=== PATIENT | male | born 1945 | race Caucasian/White ===

== ENCOUNTER 2025-08-04 14:13 | Emergency (ER) | payer MEDICARE, SELFPAY ==
--- OUTSIDE RECORDS SUMMARY | 2023-06-01 02:30 | XMS_ITS | Continuity of Care Document ---
Author Organization [facility] Address [address] [place] [address] Phone Care Team Providers Care Collection Development Librarian Name Role Phone Samantha BANGURA, Keon Unavailable Unavailable Allergies, Adverse Reactions, Alerts Substance Reaction Status Criticality No Known Allergies Active No Inform ation Medications Medication Instructions Dosage Effective Dates (start - stop) Status Comments ketorolac 0.5 % eye drops instill 1 drop by ophthalmic route 4 times every day into affected eye(s) starting 3 days before surgery and continue for 1 month after surgery - Active dorzolamide 22.3 mg-timolol 6.8 mg/mL eye drops instill 1 drop by ophthalmic route 2 times every day into affected eye(s) 1.00 drop - Active losartan 25 mg tablet - Active Combigan 0.2 %-0.5 % eye drops - Active Lexapro 5 mg tablet - Active simvastatin 10 mg tablet - Active Procedures Procedure Date Laser Trabeculoplasty Visual Field Examination(s) Gonioscopy Echo Exam Of Eye Fundus Photo W/Interp And Report 2022 Eye Exam, New Patient Advance Directives Directive Yes / No Effective Date File Name No Information Encounters Encounter Description Practice Location Reason(s) For Visit Diagnoses Date Provider Providers Copied on Encounter [facility], [address], [place], [address], [place] tel:[phone] [facility] (chief complaint) Primary open-angle glaucoma, right eye, moderate stage 3 Samantha Herbert. [address], [address], [place], [place], [address], [place]. tel:[phone] Referring Provider: Brandt Trimble, [address] [facility], [place], [address]. tel:[phone] [facility], [address], [place], [address], [place] tel:[phone] [facility] glaucoma (chief complaint) Primary open-angle glaucoma, right eye, moderate stagePrimary open-angle glaucoma, left eye, mild stageChronic follicular conjunctiviti s, bilateral Sep-0 3 Samantha Herbert. [address] [facility] [address], [address], [place], [place], [address], [place]. tel:[phone] Family History Family Member Type Diagnosis Age At Onset Problem Family history of Glaucoma Payers Payer name Insurance type Covered democrat ID Authoriza jaqueline(s) Medicare [facility] [id number] [facility] Medicare Supplement [place] [id number] Social History Type Description Quantity Date Captured Comments Alcohol Use Details Unknown Caffeine Use Details Unknown Tobacco Use Status No Information Smoking Status No Information Sex Male Chief Complaint And Reason For Visit From encounter dated '06/01/2023 08:30'. Laser (chief complaint). Description: The 77 year old client presents for SLT OD to improve IOP control, reduce IOP fluctuations, and possibly reduce eye drop burden. Reason For Referral Reason For Referral No Information Plan Of Treatment Date Type Action Status Future Order: Radiology Order Ze iss Visual Langford Analyzer STH ([id number]), Sent on: Sent History Of Present Illness Encounter Date Complaint History Of Prese nt Illness Laser The 77 year old client presents for SLT OD to improve IOP control, reduce IOP fluctuations, and possibly reduce eye drop burden. glaucoma s/p PCIOL OU (20 04) with Dr. MunguiaThe 77 year old was referred by Dr. Chavarria/Naya for glaucoma evaluation. Patient reports vision is stable, uses reading glasses only for computer. Has worked with Dr. Person in the past for his glaucoma care. gtts: Combigan BID OU -- LD: this morning Compliant: 90% (+)FHx of glaucoma: father(-)Blood thinners(-)Asthma(-)Heart Conditions Functional Status Date Functional Assessmen t No Information Instructions Date Instruction Additional Infor alize Impression/Plan Related to Prima ry open-angle glaucoma, right eye, moderate stage Impression/Plan Related to Prima ry open-angle glaucoma, right eye, moderate stage Impression/Plan Related to Prima ry open-angle glaucoma, left eye, mild stage Impression/Plan Related to Chron ic follicular conjunctivitis, bilateral Assessments Type Assessment Date assessment Primary open-angle glaucoma, rig ht eye, moderate stage impression h/o SLT OU with Dr. Cordero 65 moderate thinning ODHVF superior nasal step ODIOP 20 high ODCCT pending OD Patient Care Teams Name Effective Dates (start - stop) Status Members No Information
--- OUTSIDE RECORDS SUMMARY | 2023-06-01 02:30 | XMS_ITS | Continuity of Care Document ---
Author Organization [facility] Address [address] [place] [address] Phone Care Team Providers Care Tile Presser Name Role Phone Samantha ABNGURA, Keon Unavailable Unavailable Allergies, Adverse Reactions, Alerts [...] Diagnoses Date Provider Providers Copied on Encounter [facility], [address], [place], [address], [place] tel:[phone] [facility] (chief complaint) Primary open-angle glaucoma, right eye, moderate stage 3 Samantha Herbert. [address], [address], [place], [place], [address], [place]. tel:[phone] Referring Provider: Brandt Trimble, [address] [facility], [place], [address]. tel:[phone] [facility], [address], [place], [address], [place] tel:[phone] [facility] glaucoma (chief complaint) Primary open-angle glaucoma, right eye, moderate stagePrimary open-angle glaucoma, left eye, mild stageChronic follicular conjunctiviti s, bilateral Sep-0 3 Samantha Herbert. [address] [facility], [address], [place], [place], [id number], [place]. tel:[phone] Family History Family Member Type Diagnosis Age At Onset Problem Family history of Glaucoma Payers Payer name Insurance type Covered alliance party ID Authoriza jaqueline(s) Medicare [facility] [id number] [facility] Medicare Supplement [place] [id number] Social History Type Description Quantity Date Captured [...] Order Ze iss Visual Langford Analyzer STH ([id number]), Sent on: Sent History Of Present Illness [...] right eye, moderate stage Impression/Plan Related to Chron ic follicular conjunctivitis, bilateral Impression/Plan Related to Prima ry open-angle glaucoma, left eye, mild stage Impression/Plan Related to Prima ry open-angle glaucoma, right eye, moderate stage Assessments Type Assessment Date assessment Primary open-angle glaucoma, rig ht eye, moderate stage impression h/o SLT OU with Dr. Cordero 65 moderate thinning ODHVF superior nasal step ODIOP 20 high ODCCT pending OD Patient Care Teams Name Effective Dates (start - stop) Status Members No Information
--- NOTE | ~2025-08-04 | CT_ITS ---
EXAMINATION: CT abdomen pelvis w con DATE: 08/04/2025 17:48 INDICATION: 80 year-old with left lower quadrant pain and swelling. TECHNIQUE: Computed tomography (CT) of the abdomen and pelvis was performed 100s cc intravenous contrast. Automated exposure control and iterative reconstruction technique were employed. The dose-length product was 696.08 mGy-cm. COMPARISON: None. FINDINGS: Severe multivessel coronary artery calcification in the lower chest. Significant calcific changes of aortic valve cusps indicating some degree of aortic stenosis. No focal lesions of the liver and spleen. Gallbladder, pancreas and kidneys do not show acute findings. Severe calcific atherosclerotic changes of the proximal superior mesenteric artery. No evidence of small bowel obstruction. Fecal impaction in rectum. Large inguinal hernia on the left side containing a loop of sigmoid colon. No evidence of bowel obstruction. No fluid collections in the pelvic cavity. IMPRESSION: 1. Left inguinal hernia containing loop of sigmoid colon. No evidence of bowel obstruction. 2. Severe calcific changes of proximal superior mesenteric artery. Significant calcific changes of proximal right renal artery. 3. Significant multivessel coronary artery calcification. Calcific changes of aortic valve indicating some degree of aortic stenosis. Please correlate with echocardiographic findings. 4. Degenerative changes with postsurgical changes at L4-5 level with first- degree spondylolisthesis. Reviewed, dictated and finalized at location T. ING SPECIALIST IMPRESSION: 1. Left inguinal hernia containing loop of sigmoid colon. No evidence of bowel obstruction. 2. Severe calcific changes of proximal superior mesenteric artery. Significant calcific changes of proximal right renal artery. 3. Significant multivessel coronary artery calcification. Calcific changes of a ortic valve indicating some degree of aortic stenosis. Please correlate with ec hocardiographic findings. 4. Degenerative changes with postsurgical changes at L4-5 level with first-degr ee spondylolisthesis.
[2025-08-04 14:30] VITALS: BP 145/53; PULSE 94; RESP 18; TEMP 36.6; O2SAT 100
[2025-08-04 16:27] LABS: Hematocrit 31.5 % (42.0-52.0); Hemoglobin 10.2 g/dL (14.0-18.0); Immature Granulocyte Percent A 0.3 % (0-0.5); Lymphocytes Absolute Auto 2.29 K/mm3 (0.9-3.2); Mean Corpuscular HGB Conc 32.4 g/dl (32-36); Mean Corpuscular Hemoglobin 27.3 pg (26-34); Mean Corpuscular Volume 84.2 fl (80-100); Nucleated Red Blood Cells Absolute Auto 0.000 K/mm3 (0.0-0.012); Nucleated Red Blood Cells Perc 0.0 % (0.0-0.2); Platelet Count Result 638 k/mm3 (150-375); Red Blood Count 3.74 M/mm3 (4.6-6.20); White Blood Count 12.4 K/mm3 (4.5-10.0)
[2025-08-04 16:36] LABS: Alanine Aminotransferase 19 U/L (6-50); Albumin Level 4.6 g/dL (3.5-5.1); Alkaline Phosphatase 85 U/L (38-126); Anion Gap 8 mmol/L (4-12); Aspartate Amino Transferase 26 U/L (17-59); Bilirubin,Total 0.4 mg/dL (0.2-1.3); Blood Urea Nitrogen 22 mg/dL (9-20); Calcium 9.1 mg/dL (8.4-10.2); Carbon Dioxide 27 mmol/L (22-30); Chloride 104 mmol/L (98-107); Estimated CRCL calculation 46 ml/min; Estimated Glomerular Filt Rate > 60; Glucose 113 mg/dL (65-110); Lipase 160 U/L (23-300); Potassium 4.1 mmol/L (3.4-5.0); Sodium 139 mmol/L (137-145); Total Protein 8.2 g/dL (6.3-8.2)
--- NOTE | 2025-08-04 17:14 | ED_ITS ---
HPI - Abdominal Pain General Chief Complaint: Abdominal Pain Stated Complaint: I think I have a hernia Time Seen by Provider: 08/04/25 16:56 History of Present Illness HPI narrative: Patient is a 80-year-old male who presents to the ER with concerns of a hernia. He reports he is from [place] and is here on a work trip. Patient reports 2 weeks ago he was ?violently ill with a stomach flu but his symptoms have subsided. He reports his doctor put him on ciprofloxacin and he is almost done with that prescription. Patient denies any urinary symptoms, recent fevers, or significant diarrhea. He reports he started experiencing left lower quadrant abdominal pain yesterday so he called his doctor today. His doctor advised him to come into ER for further evaluation. Patient reports in the last couple of months he has purposefully lost 30 lb. He endorses a history of back surgery, hypertension, and takes Lexapro. Patient reports the swelling goes down into his testicles. Related Data Allergies Allergy/AdvReac Type Severity Reaction Status Date / Time No Known Allergies Allergy Verified 08/04/25 15:39 Review of Systems 2 Review of Systems: All systems reviewed & are unremarkable except as noted in HPI and below Exam 2 Narrative: GENERAL: Well appearing, well-nourished, non-toxic, in no acute distress. HEAD: Normocephalic, atraumatic. NECK: Supple. No adenopathy, no masses. RESPIRATORY: Airway patent, respirations nonlabored. Clear to auscultation bilaterally, no rales, rhonchi, wheezing. CARDIOVASCULAR: Regular rate and rhythm without murmurs, rubs, or gallops. Peripheral pulses 2+ and equal bilaterally. ABDOMINAL: Soft, left lower quadrant tenderness, nondistended, no hepatosplenomegaly. Normoactive BS. Swelling to left lower quadrant but no hard masses palpable with minimal swelling to testicle. Negative Cremasteric sign. MUSCULOSKELETAL: Moves all extremities. Strength/ROM intact without gross deformities. SKIN: Warm, dry, normal color. No rashes. NEURO: A&O X3. Speech clear. Cranial nerves II-XII intact. No ataxic movements. PSYCHIATRIC: Appropriate mood and affect. Normal interaction. Course Vital Signs Vital signs: Vital Signs Temperature 36.6 C 08/04/25 14:30 Pulse Rate 94 08/04/25 14:30 Respiratory Rate 18 08/04/25 14:30 Blood Pressure 145/53 H 08/04/25 14:30 Pulse Oximetry 100 08/04/25 14:30 Temperature 36.6 C 08/04/25 14:30 Pulse Rate 87 08/04/25 18:21 Respiratory Rate 18 08/04/25 18:21 Blood Pressure 146/88 H 08/04/25 18:21 Pulse Oximetry 100 08/04/25 18:21 MDM - Abdominal Pain MDM Narrative Medical decision making narrative: Patient is a 80-year-old male who presents to the ER with concerns of a hernia. He reports he is from [place] and is here on a work trip. Patient reports 2 weeks ago he was ?violently ill with a stomach flu but his symptoms have subsided. He reports his doctor put him on ciprofloxacin and he is almost done with that prescription. Patient denies any urinary symptoms, recent fevers, or significant diarrhea. He reports he started experiencing left lower quadrant abdominal pain yesterday so he called his doctor today. His doctor advised him to come into ER for further evaluation. Patient reports in the last couple of months he has purposefully lost 30 lb. He endorses a history of back surgery, hypertension, and takes Lexapro. Patient reports the swelling goes down into his testicles. Labs Ordered: CBC, CMP, lipase, UA Imaging Ordered: CT abdomen pelvis Medications Ordered: None necessary Results: Pt's CT scan indicates Severe multivessel coronary artery calcification in the lower chest. Significant calcific changes of aortic valve cusps indicating some degree of aortic stenosis. No focal lesions of the liver and spleen. Gallbladder, pancreas and kidneys do not show acute findings. Severe calcific atherosclerotic changes of the proximal superior mesenteric artery. No evidence of small bowel obstruction. Fecal impaction in rectum. Large inguinal hernia on the left side containing a loop of sigmoid colon. No evidence of bowel obstruction. No fluid collections in the pelvic cavity. Diagnosis: L inguinal hernia, arthrosclerosis Consults: 1829-Pt's primary care provider Patient Education/Shared MDM: Results of lab work and imaging shared with patient. He requests FLIGHT CONTROL MANAGER see with his primary care provider to share results with her. Results of lab work and imaging shared with his primary care provider. She and patient will follow-up tomorrow or the next day, as soon as he gets back into [place]. Pt's PCP advises pt has a hazardous substances engineer and business intelligence engineer established, and she will have him follow up with a general surgeon. Patient reports he is unable to urinate at this time. He is requesting to be discharged without a urinalysis, as he reports he will be able to urinate once he gets back to his hotel room. Patient strongly advised to maintain hydration status upon discharge. He will not be discharged home with any new prescriptions. Strict return precautions provided. Patient verbalized understanding and is in agreement with plan. Vital signs stable at time of discharge. All questions answered. Differential Diagnosis Differential diagnosis: Likely abdominal pain, acute appendicitis, calculus of kidney, constipation, small bowel obstruction and other (inguinal hernia) Lab Data Attestation: I reviewed the patient's lab results. 08/04/25 16:21 08/04/25 16:21 Labs: Lab Results 08/04/25 Range/Units 16:21 WBC 12.4 H (4.5-10.0) K/mm3 RBC 3.74 L (4.6-6.20) M/mm3 Hgb 10.2 L (14.0-18.0) g/dL Hct 31.5 L (42.0-52.0) % MCV 84.2 (80-100) fl MCH 27.3 (26-34) pg MCHC 32.4 (32-36) g/dl RDW 15.4 H (11.5-14.5) % Plt Count 638 H (150-375) k/mm3 MPV 9.1 (7.4-10.4) fl Immature Gran % (Auto) 0.3 (0-0.5) % Neut % (Auto) 66.1 (45.5-73.1) % Lymph % (Auto) 18.5 (18.3-44.2) % [place] % (Auto) 11.7 H (2.6-8.5) % Eos % (Auto) 2.8 (0-4.4) % Baso % (Auto) 0.6 (0.2-1.2) % Lymph # (Auto) 2.29 (0.9-3.2) K/mm3 [place] # (Auto) 1.4 H (0.1-0.6) K/mm3 Eos # (Auto) 0.3 (0-0.3) K/mm3 Baso # (Auto) 0.1 (0.0-0.1) K/mm3 Abs Immat Gran (auto) 0.04 H (0.00-0.031) K/mm3 Absolute Neuts (auto) 8.2 H (1.3-6.7) K/mm3 Absolute Nucleated RBC 0.000 (0.0-0.012) K/mm3 Nucleated RBC % 0.0 (0.0-0.2) % Sodium 139 (137-145) mmol/L Potassium 4.1 (3.4-5.0) mmol/L Chloride 104 (98-107) mmol/L Carbon Dioxide 27 (22-30) mmol/L Anion Gap 8 (4-12) mmol/L BUN 22 H (9-20) mg/dL Creatinine 1.12 (0.7-1.3) mg/dL Estim Creat Clear Calc 46 ml/min Estimated GFR > 60 (59 - ) Glucose 113 H (65-110) mg/dL Calcium 9.1 (8.4-10.2) mg/dL Total Bilirubin 0.4 (0.2-1.3) mg/dL AST 26 (17-59) U/L ALT 19 (6-50) U/L Alkaline Phosphatase 85 (38-126) U/L Total Protein 8.2 (6.3-8.2) g/dL Albumin 4.6 (3.5-5.1) g/dL Lipase 160 (23-300) U/L Imaging Data Attestation: I personally reviewed and interpreted this imaging study as follows: Radiologist's impression: ITS Impressions Abdomen/Pelvis CT 08/04/25 17:49 IMPRESSION: 1. Left inguinal hernia containing loop of sigmoid colon. No evidence of bowel obstruction. 2. Severe calcific changes of proximal superior mesenteric artery. Significant calcific changes of proximal right renal artery. 3. Significant multivessel coronary artery calcification. Calcific changes of aortic valve indicating some degree of aortic stenosis. Please correlate with echocardiographic findings. 4. Degenerative changes with postsurgical changes at L4-5 level with first- degree spondylolisthesis. Discharge Plan Discharge Clinical Impression: Atherosclerosis of arteries, Inguinal hernia Patient Disposition: Home Condition: Stable Instructions: Antibiotic Form, Low Fat Diet (ED), Inguinal Hernia (ED) Additional Instructions: Please return to the ER with any worsening symptoms. Follow-up with primary care provider as soon as possible, as discussed. Take all medications as prescribed, including regularly scheduled medications. If you are unable to urinate, please return to the ER. Remember to drink lots of water. Patient Language: Portuguese Follow-up/Referrals: PHYSICIAN,SPIRAL SPRING WINDER [Primary Care Provider, Internal Medicine] Time of Disposition: 19:16
[2025-08-04 18:21] VITALS: BP 146/88; PULSE 87; RESP 18; O2SAT 100
--- OUTSIDE RECORDS SUMMARY | 2025-08-05 04:46 | XMS_ITS ---
Author Organization Unknown ENCOUNTERS Encounter Performer Location Date Diagnosis Diagnosis Status Pre Admit [place] [id number] [place] [address] [id number] Emergency [facility] [address] [place] [address] [id number] JOELLE *Note: Encounters from your own facility or health system may be excluded. Allergies, Adverse Reactions, Alerts Allergen Type Severity Identification Date Medications Name Date Quantity Days Supplied GPI Number
--- OUTSIDE RECORDS SUMMARY | 2025-08-05 04:46 | XMS_ITS | Encounter Summary ---
Author Organization [facility] Address [address] [place] [address] Care Team Providers Care Rivet Bucker Name Role Phone Maureen Barahona MD Primary Care Provider [phone] Reason for Referral * Surgical (Routine) - Authorized Specialty Diagnoses / Procedures Referred By Contac t Referred To Contact Surgery / General Surgery Diagnoses Non-recurrent unilateral inguinal hernia without obstruction [place] [address] [facility] [address] [place] [address] Phone: tel: fax: Juanis Reese MD [address] [place] [address] Phone: tel: fax: Referral ID Status Reason Start Date Expiration Date Visits Requested Visits Authorized [id number] Authorized Specialty Services Required 5 1 1 Reason for Visit * Reason Onset Date Comments Advice Only 08/04/2025 Pt called after hours with possible inginal hernia, he is out of town right now till tomorrow night. Encounter Details Date Type Department Care Team (Late st Contact Info) Description 08/04/2025 Telephone [facility] [address] [place] [address] [place] [address] [place] [address] Advice Only (Pt called after hours with possible inginal hernia, he is out of town right now till tomorrow night.) Social History Tobacco Use Types Packs/Day Years Used Date Smoking Tobacco: Never Passive Smoke Exposure: Never Smokeless Tobacco: Never Alcohol Use Standard Drinks/Week Comments Yes 10 (1 standard drink = 0.6 oz pu re alcohol) Overall Financial Resource Strain (CARDIA) Answe r Date Recorded How hard is it for you to pa y for the very basics like food, housing, medical care, and heating? Not hard at all 03/06/2023 PHQ-2 Answer Date Recorded PHQ-2 Score 0 12/01/2024 [facility] Occupat ional [facility] - Occupational Stress Questionnaire Answer Date Recorded Do you feel stress - tense, restless, nervous, or anxious, or unable to sleep at night because your mind is troubled all the time - these days? Not at all 03/06/2023 Hunger Vital Sign Answer Date Recorded Within the past 12 months, y ou worried that your food would run out before you got the money to buy more. Never true 03/06/20 23 Within the past 12 months, t he food you bought just didn't last and you didn't have money to get more. Never true 03/06/2023 PRAPARE - Transportation Answer Date Re corded In the past 12 months, has l ack of transportation kept you from medical appointments or from getting medications? No 02/16 In the past 12 months, has l ack of transportation kept you from meetings, work, or from getting things needed for daily living? No 03/06/2023 Housing Stability Vital Sign Answer Neto e Recorded In the last 12 months, was t here a time when you were not able to pay the mortgage or rent on time? No 03/06/2023 In the last 12 months, how many places have you lived? 1 03/06/2023 In the last 12 months, was t here a time when you did not have a steady place to sleep or slept in a assisted (including now)? No 03/06/2023 Sex and Gender Information Value Date Recorded Sex Assigned at Not on file Legal Sex Male 3:11 AM EDT Gender Identity Not on file Sexual Orientation Not on file documented as of this encounter Miscellaneous Notes * Telephone Encounter - Maureen Barahona MD - 08/04/2025 9:11 AM EST August 04, 2025 at 7:44 AM SMS: Bakari Fischer ( ) Good morning Dr Barahona. It's Robby Fischer. I could use your help once more this week!! Ugh... we spoke on the phone yesterday about the swelling and pain in my left groin area. Know what??? I really think it's a hernia. Classic symptoms. And it's pretty bad!! Can you arrange a priority appointment with a surgeon, soonest? I see there is a [place] group with a Dr Knight in [place]. But please recommend your first choice!! I am back tomorrow night. How many times can I say...Thank You'. Robby. (I am textable at any time) I called pt no answer, he is in [place] at a meeting. I sent him a message rec if pain worse to go to local ER there to be assessed for possible incarcerated hernia. I will also place urgent referral to local group down here. documented in this encounter Plan of Treatment Upcoming Encounters Date Type Department Care Team (Late st Contact Info) Description 08/06/2025 3:20 PM EST Office Visit [place] [address] [address] [place] [address] [place] [address] [facility] [address] [place] [address] Lakeshia Gregory NP 08/20/2025 1:30 PM EST Office Visit [facility] [address] [facility] [address] [place] [address] [place] [address] [address] Scheduled Referrals Name Type Priority Associated Diagnoses Orde r Schedule Ambulatory referral to General Surgery Outpatient Referral Routine Non-recurrent unilateral inguinal hernia without obstruction or gangrene Ordered: 08/04/2025 documented as of this encounter Visit Diagnoses Diagnosis Non-recurrent unilateral inguinal hernia without obstruction or gangrene- Primary documented in this encounter Care Teams Rivet Bucker Relationship Specialty Start [place] [address] [address] PCP - General Internal Medicine 12/01/24 documented as of this encounter
--- OUTSIDE RECORDS SUMMARY | 2025-08-05 04:46 | XMS_ITS | Encounter Summary ---
Author Organization [facility] Address [address] [place] [address] Care Team Providers Care Sail Finisher Hand Name Role Phone Maureen Barahona MD Primary Care Provider Encounter Details Date Type Department Care Team (Latest Contact Info) Description 07/29/2025 Results Follow-Up [facility] [address] [facility] [address] [place] [address] [place] [address] [facility] [address] [place] [address] CBC w/platelet and auto diff, Comprehensive metabolic panel, Vitamin D 25 hydroxy, Additional followed-up results: 4 Social History Tobacco Use Types Packs/Day Years [...] Answer Date Recorded PHQ-2 Score 0 12/01/2024 [facility] [place] of Occupat ional Health - Occupational Stress [...] place to sleep or slept in a detention (including now)? No 03/06/2023 Sex and Gender Information Value Date Recorded Sex Assigned at Not on file Legal Sex Male 3:11 AM EDT Gender Identity Not on file Sexual Orientation Not on file documented as of this encounter Plan of Treatment Upcoming Encounters Date Type Department Care Team (Late st Contact Info) Description 08/06/2025 3:20 PM EST Office Visit [address] [address] [place] [address] [place] [address] [facility] [address] [place] [address] Lakeshia Gregory NP 08/20/2025 1:30 PM EST Office Visit [facility] [address] [address] [place] [address] [place] [address] documented as of this encounter Visit Diagnoses Not on filedocumented in this encounter Care Teams Sail Finisher Hand Relationship Specialty Start [place] [address] [facility] [address] [place] [address] PCP - General Internal Medicine 12/01/24 documented as of this encounter
--- OUTSIDE RECORDS SUMMARY | 2025-08-05 04:46 | XMS_ITS | Clinical Summary ---
Author Organization [facility] Address [address] [place] [address] Care Team Providers Care Ediscovery Project Manager Name Role Phone Maureen Barahona MD Primary Care Provider [phone] Allergies Active Allergy Reactions Criticality Noted Date Comments Hizvweo-Fnf-Lgq Reductase Inhibitors Other (See Comments),Drowsiness 06/04/2025 Cramping, dizziness Medications brimonidine-ti moloL (COMBIGAN) 0.2-0.5 % ophthalmic solution 1 drop every 12 (twelve) hours. Active TURMERIC ORAL Take by mouth Daily. Active COQ10, UBIQUINOL, ORAL Take by mouth Daily. Active famotidine (PEPCID) 20 MG tablet Take by mouth Daily. Active docusate sodium (COLACE) 100 MG capsule Take 1 capsule (100 mg total) by mouth in the morning and 1 capsule (100 mg total) before bedtime. 20 capsule 3 Active prednisoLONE acetate (PRED FORTE) 1 % ophthalmic suspension Place 1 drop into the left eye in the morning. 5 Active traMADoL (ULTRAM) 50 mg tablet Take by mouth. 5 Active rosuvastatin (CRESTOR) 10 MG tablet Take 1 tablet by mouth in the morning. 90 tablet 1 5 Active azithromycin (ZITHROMAX Z-MAGALIE) 250 mg tablet Take two 250 mg tablets on the first day and one 250-mg tablet once daily for the next four days. 6 tablet 5 Active escitalopram oxalate (LEXAPRO) 10 MG tablet Take 1.5 tablets by mouth in the morning. 135 tablet 3 5 Active valACYclovir (VALTREX) 500 MG tablet Take 1 tablet by mouth 2 (two) times daily as needed. 60 tablet 3 5 Active losartan (COZAAR) 50 MG tablet Take 1 tablet by mouth in the morning. 90 tablet 3 5 Active traZODone (DESYREL) 50 MG tablet Take 1 tablet by mouth nightly. 90 tablet 1 5 025 Active tadalafiL (CIALIS) 10 MG tablet Take 1 tablet by mouth as needed for Erectile Dysfunction. 20 tablet 6 5 025 Discontinued Active Problems Problem Noted Date Diagnosed Date Elevated coronary artery calcium score GERD (gastroesophageal reflux disease) 5 Obese 01/13/2025 Other specified glaucoma 12/01/2024 Spondylolisthesis, lumbar region 11/27/2022 Overview (11/27/2022): Added automatically from request for surgery [id number] Lumbar radiculopathy 11/27/2022 Overview (11/27/2022): Added automatically from request for surgery [id number] Spinal stenosis of lumbar re gion with neurogenic claudication 11/27/2022 Overview (11/27/2022): Added automatically from request for surgery [id number] Degeneration of lumbar intervertebral disc 11/27 Overview (11/27/2022): Added automatically from request for surgery [id number] Chronic midline low back pain without sciatica 0 04/04/2021 Anemia 05/16/2020 Essential hypertension 11/29/2017 Mixed hyperlipidemia 11/29/2017 Depression 11/29/2017 Psychophysiological insomnia 11/29/2017 Restless leg syndrome 11/29/2017 Encounters Date Type Department Care Team Description 08/04/2025 Telephone [facility] CPM [address] [place] [address] Mayela Costa HEALTHCARE ASSOCIATE Advice Only 08/04/2025 Telephone [facility] [address] [address] Maureen Barahona MD Advice Only (Pt called after hours with possible inginal hernia, he is out of town right now till tomorrow night.) 08/03/2025 Telephone [facility] [address] [address] Maureen Barahona MD Results (Stool culture results/) 07/29/2025 Results Follow-Up [facility] [id number] [place] [address] Maureen Barahona MD CBC w/platelet and auto diff, Comprehensive metabolic panel, Vitamin D 25 hydroxy, Additional followed-up results: 4 07/29/[address] [place] [address] Geetha Meléndez Appointment 07/29/2025 Orders Only [facility] [id number] [place] [address] Jerson Schumacher CMA Iron deficiency anemia, unspecified iron deficiency anemia type (Primary Dx) 07/27/2025 1:00 PM EST Office Visit [facility] [address] [place] [address] Maureen Barahona MD Mixed hyperlipidemia (Primary Dx); Diarrhea, unspecified type; Other fatigue; Dizziness; Vitamin D deficiency; Gastroesophageal reflux disease, unspecified whether esophagitis present; Low ferritin; Essential hypertension 07/10/2025 Telephone [facility] [address] [facility] [employer] [employer] [address] [address] Jerson Schumacher CMA 06/04/2025 9:30 AM EDT Office Visit [facility] [address] [place] [address] Maureen Barahona MD Need for influenza vaccination (Primary Dx); Gastroesophageal reflux disease without esophagitis; Elevated coronary artery calcium score; Essential hypertension; Degeneration of intervertebral disc of lumbar region, unspecified whether pain present; Mixed hyperlipidemia; Mild episode of recurrent major depressive disorder 05/28/2025 Results Follow-Up [facility] [address] [facility] [address] [place] [address] Maureen Barahona MD Vitamin D 25 hydroxy, Lipid panel, Hemoglobin A1C 05/27/2025 9:45 AM EDT Clinical Support [facility] [address] [facility] [address] [place] [address] Jerson Schumacher CMA Vitamin D deficiency (Primary Dx); Mixed hyperlipidemia; Prediabetes from Last 3 Months Immunizations Immunization Administration Dates Next Due Influenza Inj (PF) Quad 0.5m l (MYA=462) 05/27/2020 Influenza Inj FLUAD (PF) Nader d 65+yr 0.5ml (RLB=790) 05/12/2022,06/22/2021,05/27/2020 Influenza Inj FLUAD (PF) Tri valent 65+yr 0.5ml (LNN=548) 05/16/2024 Influenza Inj FLUBLOK (PF) Q UAD 0.5ml (RDS=889) 07/02/2019,06/28/2018 Influenza Inj HIGH DOSE Triv alent (PF) 0.5ml (EDC=283) 06/04/2025,05/16/2024,10/08/2017 Influenza Inj w/Preservative TRIVALENT (IJG=589) 06/23/2013,05/22/2012 R + B Group BioNTScreenie COVID-19 0.3 ml (12y&up) 05/29/2024,05/11/2021,10/18/2020,09/27 Pneumococcal Conjugate PCV13 (OEX=659) 9 Pneumococcal Polysaccharide PPSV23 Egewooies76 (CVX=33) 02/20/2012 RSV VACCINE recombinant AREX VY PF 0.5ml 60yr+ 09/02/2023 Shingrix (recombinant) (BOX=185) 05/12/2022,02/15 Family History Medical History Relation Name Comments Heart disease Mother mother Relation Name Status Comments Father Mother mother Social History Tobacco Use Types Packs/Day Years Used Date Smoking Tobacco: Never Passive Smoke Exposure: Never Smokeless Tobacco: Never Tobacco Cessation:Counseling Given: Not Answered Alcohol Use Standard Drinks/Week Comments Yes 10 (1 standard drink = 0.6 oz pu re alcohol) Overall Financial Resource Strain (CARDIA) Answe r Date Recorded How hard is it for you to pa y for the very basics like food, housing, medical care, and heating? Not hard at all 03/06/2023 PHQ-2 Answer Date Recorded PHQ-2 Score 0 12/01/2024 [facility] [place] of Occupat ional Health - Occupational Stress [...] money to buy more. Never true 03/06/20 Within the past 12 months, t he [...] place to sleep or slept in a retirement (including now)? No 03/06/2023 Sex and Gender Information Value Date Recorded Sex Assigned at Not on file Legal Sex Male 3:11 AM EDT Gender Identity Not on file Sexual Orientation Not on file Last Filed Vital Signs Vital Sign Reading Time Taken Comments Blood Pressure 121/68 07/27/2025 1:17 PM EST Pulse 74 07/27/2025 1:17 PM EST Temperature 36.6 C (97.9 F) 07/27/2025 1:17 PM EST Respiratory Rate 16 07/27/2025 1:17 PM EST Oxygen Saturation 99% 07/27/2025 1:17 PM EST Inhaled Oxygen Concentration - - Weight 86.4 kg (190 lb 6.4 oz) 07/27/2025 1:17 P M EST Height 170.2 cm (5' 7) 07/27/2025 1:17 PM EST Body Mass Index 29.82 07/27/2025 1:17 PM EST Plan of Treatment Upcoming Encounters Date Type Department Care Team (Late st Contact Info) Description 08/06/2025 3:20 PM EST Office Visit [address] [address] [place] [address] [place] [address] [facility] [address] [place] [address] Lakeshia Gregory NP 08/20/2025 1:30 PM EST Office Visit [facility] [address] [address] [place] [address] [address] Health Maintenance Due Date Last Done Comments TdaP/Td Vaccine (1 - Tdap) 1956 Medicare Subsequent AWV [id number] 05/01/2024 04/30/2023, 04/27/2022, 04/04/2021, Additional history exists COVID-19 Vaccine (2024- season) 2025 05/29/2024, 03/10/2024, 01/08/2023, Additional history exists Hepatitis C Screening Completed 11/25/2018 Pneumococcal Vaccine 50+ years Completed 12/02/2018, 02/20/2012 Shingles Vaccine Completed 05/12/2022, 02/25/2022 RSV Vaccines Completed 09/02/2023 Influenza Vaccine Completed 06/04/2025, , 05/16/2024, Additional history exists Hepatitis A Vaccine Aged Out No longe r eligible based on patient's age to complete this topic Meningococcal ACWY Vaccine Aged Out N o longer eligible based on patient's age to complete this topic Medical Devices Implanted Type Area User Experience Analyst Device Identifier Shelf Expiration Date Model / Serial / Lot Carmel Ramirez 5cc - [id number] Implanted:Qty: 1 on 03/05/2023 by Bakari Thompson MD at [facility] N/A: Back -Middle [employer] [facility] 03/23/2025 [id number] / [id number] / Scr Bone 5.5mm 35mm Ats Spine Multiaxial 4.75mm Chang - [id number] Implanted:Qty: 4 on 03/05/2023 by Bakari Thompson MD at [facility] N/A: Back -Middle [employer] [facility] 09/16/2024 [id number] / [id number] / Set Scr Solera Spinal Titanium Breakoff 4.75 Mm Chang - [id number] Implanted:Qty: 4 on 03/05/2023 by Bakari Thompson MD at [facility] N/A: Back -Middle [employer] 09/16/2025 [id number] / [id number] / [id number] Implanted:Qty: 2 on 03/05/2023 by Bakari Thompson MD at [facility] N/A: Back -Middle [employer] 09/16/2025 / [id number] / Procedures Procedure Name Priority Date/Time Associated Diagnosis Comments TSH Routine 07/27/2025 2:41 PM EST Diarrhea, unspecified type Other fatigue T4, FREE Routine 07/27/2025 2:41 PM EST Diarrhea, unspecified type Other fatigue FERRITIN Routine 07/27/2025 2:41 PM EST Diarrhea, unspecified type Other fatigue Dizziness Gastroesophageal reflux disease, unspecified whether esophagitis present Low ferritin VITAMIN B12 Routine 07/27/2025 2:41 PM EST Diarrhea, unspecified type Other fatigue Dizziness VITAMIN D 25 HYDROXY Routine 07/27/2025 2:41 PM EST Diarrhea, unspecified type Vitamin D deficiency COMPREHENSIVE METABOLIC PANEL Routine 07/27/2025 2:41 PM EST Diarrhea, unspecified type CBC W/PLAT AUTOMATED DIFF Routine 07/27/2025 2:41 PM EST Diarrhea, unspecified type Other fatigue HEMOGLOBIN A1C Routine 05/27/2025 11:47 AM EDT Prediabetes LIPID PANEL WITH REFLEX TO LDL DIRECT Routine 05/27/2025 11:47 AM EDT Mixed hyperlipidemia VITAMIN D 25 HYDROXY Routine 05/27/2025 11:47 AM EDT Vitamin D deficiency HEPATITIS C ANTIBODY Routine 11/25/2018 10:46 AM EDT Need for hepatitis C screening test from Last 3 Months or Most Recently Relevant to Health Maintenance Results * (ABNORMAL) CBC w/platelet and auto diff (07/27/2025 2:41 PM EST) WBC 12.6(H) 3.4 - 10.8 x10E3/uL [facility] RBC 3.53(L) 4.14 - 5.80 x10E6/uL [facility] Hemoglobin 9.5(L) 13.0 - 17.7 g/dL [facility] Hematocrit 30.6(L) 37.5 - 51.0 % [facility] MCV 87 79 - 97 fL [facility] MCH 26.9 26.6 - 33.0 pg [facility] MCHC 31.0(L) 31.5 - 35.7 g/dL [facility] RDW 13.9 11.6 - 15.4 % [facility] Platelets 570(H) 150 - 450 x10E3/uL [facility] Neutrophils Relative 61 Not Estab. % [facility] Lymphocytes Relative 21 Not Estab. % [facility] Monocytes Relative 13 Not Estab. % [facility] Eosinophils Relative 4 Not Estab. % [facility] Basophils Relative 1 Not Estab. % [facility] Neutrophils Absolute 7.7(H) 1.4 - 7.0 x10E3/uL [facility] Lymphocytes Absolute 2.6 0.7 - 3.1 x10E3/uL [facility] Monocytes Absolute 1.7(H) 0.1 - 0.9 x10E3/uL [facility] Eosinophils Absolute 0.5(H) 0.0 - 0.4 x10E3/uL [facility] Basophils Absolute 0.1 0.0 - 0.2 x10E3/uL [facility] Immature Granulocytes 0 Not Estab. % [facility] Immature Grans (ABS) 0.0 0.0 - 0.1 x10E3/uL [facility] Blood 07/27/2025 2:41 PM EST 07/28/2025 Narrative [facility] - 07/29/2025 2:08 AM EST Performed at: [address] [place] [id number] Exterior Door Installer: Bakari Ríos MD, Phone: [phone] us Samer Shabbir Barahona MD LAB BLOOD ORDERABLES Final Result Performing Organization Address City/State/[facility] Co ne Phone Number [facility] [phone] * (ABNORMAL) Vitamin D 25 hydroxy (07/27/2025 2:41 PM EST) Only the most recent of2 resultswithin the time period is included. [facility] Vit D, 25-Hydroxy 23.7(L) 30.0 - 100.0 ng/mL [facility] Comment: Vitamin D deficiency has been defined by the [place] of [place] and an Endocrine Society practice guideline as a level of serum 25-OH vitamin D less than 20 ng/mL (1,2). The Endocrine Society went on to further define vitamin D insufficiency as a level between 21 and 29 ng/mL (2). 1. IOM ([place] of Medicine). 2010. Dietary reference intakes for calcium and D. [place]: The National Academies Press. 2. Ana M MF, Ander HOLDER, Larry GAFFNEY et al. Evaluation, treatment, and prevention of vitamin D deficiency: an Endocrine Society clinical practice guideline. JCEM. 2010; 96(7):1911-30. Blood 07/27/2025 2:41 PM EST 07/28/2025 Narrative [facility] - 07/29/2025 2:08 AM EST Performed at: 01 - [address] [id number] Exterior Door Installer: Bakari Ríos MD, Phone: [phone] Maureen Barahona MD LAB BLOOD ORDERABLES Final Result Performing Organization Address [facility] Co de Phone Number [facility] [phone] * TSH (07/27/2025 2:41 PM EST) TSH 1.560 0.450 - 4.500 uIU/mL [facility] Blood 07/27/2025 2:41 PM EST 07/28/2025 Narrative [facility] - 07/29/2025 2:08 AM EST Performed at: - [address] [id number] Exterior Door Installer: Bakari Ríos MD, Phone: [phone] Maureen Barahona MD LAB BLOOD ORDERABLES Final Result Performing Organization Address [facility] Co de Phone Number [facility] [phone] * T4, free (07/27/2025 2:41 PM EST) Free T4 1.17 0.82 - 1.77 ng/dL [facility] Blood 07/27/2025 2:41 PM EST 07/28/2025 Narrative [facility] - 07/29/2025 2:08 AM EST Performed at: - [address] [id number] Exterior Door Installer: Bakari íRos MD, Phone: [phone] Maureen Barahona MD LAB BLOOD ORDERABLES Final Result Performing Organization Address City/[facility] de Phone Number [facility] [phone] * (ABNORMAL) Ferritin (07/27/2025 2:41 PM EST) [facility] Ferritin 22(L) 30 - 400 ng/mL [facility] Blood 07/27/2025 2:41 PM EST 07/28/2025 Narrative [facility] - 07/29/2025 2:08 AM EST Performed at: [address] [id number] Exterior Door Installer: Bakari Ríos MD, Phone: [phone] Maureen Barahona MD LAB BLOOD ORDERABLES Final Result Performing Organization Address [facility] de Phone Number [facility] [phone] * Vitamin B12 (07/27/2025 2:41 PM EST) [facility] Vitamin B-12 745 232 - 1,245 pg/mL [facility] Blood 07/27/2025 2:41 PM EST 07/28/2025 Narrative [facility] - 07/29/2025 2:08 AM EST Performed at: 01 - [address] [id number] Exterior Door Installer: Bakari Ríos MD, Phone: [phone] Maureen Barahona MD LAB BLOOD ORDERABLES Final Result Performing Organization Address [facility] de Phone Number [facility] [phone] * (ABNORMAL) Comprehensive metabolic panel (07/27/2025 2:41 PM EST) [facility] Glucose 87 70 - 99 mg/dL [facility] BUN 18 8 - 27 mg/dL [facility] Creatinine 1.12 0.76 - 1.27 mg/dL [facility] BUN/Creatinine Ratio 16 10 - 24 [facility] Sodium 139 134 - 144 mmol/L [facility] Potassium 5.3(H) 3.5 - 5.2 mmol/L [facility] Chloride 102 96 - 106 mmol/L [facility] CO2 23 20 - 29 mmol/L [facility] Calcium 9.1 8.6 - 10.2 mg/dL [facility] Total Protein 6.6 6.0 - 8.5 g/dL [facility] Albumin 4.3 3.8 - 4.8 g/dL [facility] Globulin, Total 2.3 1.5 - 4.5 g/dL [facility] Total Bilirubin 0.3 0.0 - 1.2 mg/dL [facility] Alkaline Phosphatase 76 47 - 123 IU/L [facility] AST 15 0 - 40 IU/L [facility] ALT(SGPT) 28 0 - 44 IU/L [facility] Blood 07/27/2025 2:41 PM EST 07/28/2025 Narrative [facility] - 07/29/2025 2:08 AM EST Performed at: [address] [id number] Exterior Door Installer: Bakari Ríos MD, Phone: [phone] Maureen Barahona MD LAB BLOOD ORDERABLES Final Result Performing Organization Address [facility] Phone Number [facility] [phone] * Hemoglobin A1C (05/27/2025 11:47 AM EDT) [facility] Hemoglobin A1C 5.6 4.8 - 5.6 % [facility] Comment: Prediabetes: 5.7 - 6.4 Diabetes: >6.4 Glycemic control for adults with diabetes: <7.0 Blood (Blood, Venous) 05/27/2025 11:47 AM EDT 05/27/2025 Comment:Blood, Venous Narrative [facility] - 05/28/2025 6:09 AM EDT Performed at: [address] [id number] Exterior Door Installer: Bakari Ríos MD, Phone: [phone] Maureen Barahona MD LAB BLOOD ORDERABLES Final Result Performing Organization Address [facility] de Phone Number [facility] [phone] * (ABNORMAL) Lipid panel (05/27/2025 11:47 AM EDT) Cholesterol, Total 217(H) 100 - 199 mg/dL [facility] Triglycerides 153(H) 0 - 149 mg/dL [facility] Hdl 50 >39 mg/dL [facility] VLDL Cholesterol Jimmy 27 5 - 40 mg/dL [facility] LDL CHOL CALC (NIH) 140(H) 0 - 99 mg/dL [facility] Chol/HDL Ratio 4.3 0.0 - 5.0 ratio [facility] Comment: T. Chol/HDL Ratio Men Women 1/2 Avg.Risk 3.4 3.3 Avg.Risk 5.0 4.4 2X Avg.Risk 9.6 7.1 3X Avg.Risk 23.4 11.0 Blood (Blood, Venous) 05/27/2025 11:47 AM EDT 05/27/2025 Comment:Blood, Venous Narrative [facility] - 05/28/2025 6:09 AM EDT Performed at: [address] [place] [id number] Exterior Door Installer: Bakari Ríos MD, Phone: [phone] Maureen Barahona MD LAB BLOOD ORDERABLES Final Result [facility] [phone] * Hepatitis C antibody (future) (11/25/2018 10:46 AM EDT) Pathologist [facility] Hepatitis C Ab Nonreactive Nonreactive 11/26/2018 10:16 AM EDT [facility] Blood (Blood, Venous) Venipuncture / Unknown 11/25/2018 10:46 AM EDT 11/25/2018 10:46 AM EDT Kimberli Wallace MD LAB BLOOD ORDERABLES Final Resul t [facility] [address] [place] [address] from Last 3 Months or Most Recently Relevant to Health Maintenance Insurance [facility] Advance Directives * Full Code (Latest Code Status on File) Date Activated Date Inactivated Comments 03/05/2023 9:19 AM 03/06/2023 6:08 PM Care Teams [employer] Project Manager Relationship Specialty Start [place] [address] [address] PCP - General Internal Medicine 12/01/24
--- OUTSIDE RECORDS SUMMARY | 2025-08-05 04:46 | XMS_ITS | Encounter Summary ---
Author Organization [facility] Address [address] [place] [address] Care Team Providers Care Deckhand Sponge Boat Name Role Phone Maureen Barahona MD Primary Care Provider [phone] Reason for Visit * Reason Onset Date Comments Advice Only 08/04/2025 Encounter Details Date Type Department Care Team (Late st Contact Info) Description 08/04/2025 Telephone [facility] [address] [place] [address] Mayela Costa, [address] [place] [address] Advice Only Social History Tobacco Use Types Packs/Day Years [...] Answer Date Recorded PHQ-2 Score 0 12/01/2024 [facility] - Occupational Stress [...] encounter Miscellaneous Notes * Telephone Encounter - Mayela Costa, [facility] - 08/04/2025 1:12 PM EST Patient called to schedule an evaluation for hernia consult secondary to groin pain/swelling he wastransferred from the front end software developer for further evaluation of symptoms. Patient is out of town in [place] with plans to fly back tomorrow. He states he started having pelvic pain a couple days ago and noticed a bulge in his pelvic area as well. States the pain is manageable but he is in a lot of discomfort. Patient was advised to go to the ER for evaluation but wanted to wait until he came back to the [facility]. Advised patient that there is some risk of flying with a possible incarcerated hernia. He voiced his understanding and is going to decide about when to go the ER for further evaluation. I told him that if he does go to the ER in [place] that it would be best to have them give him a copy of the scans on a disk so that they can be uploaded into our system. *Spoke with Veronica Bronson NP. documented in this encounter Plan of Treatment Upcoming Encounters Date Type Department Care Team (Late st Contact Info) Description 08/06/2025 3:20 PM EST Office Visit [facility] [place] [address] [address] [place] [id number] [place] [address] [facility] [address] [place] [address] Lakeshia Gregory NP 08/20/2025 1:30 PM EST Office Visit [facility] [address] [facility] [address] [place] [address] [place] [address] [facility] [address] [place] [address] documented as of this encounter Visit Diagnoses Not on filedocumented in this encounter Care Teams Deckhand Sponge Boat Relationship Specialty Start [place] [address] [facility] [address] [place] [address] PCP - General Internal Medicine 12/01/24 documented as of this encounter
--- OUTSIDE RECORDS SUMMARY | 2025-08-05 04:46 | XMS_ITS | Encounter Summary ---
Author Organization [facility] Address [address] [place] [address] Care Team Providers Care Mural Artist Name Role Phone Kimberli Wallace MD Primary Care Provider [phone] Maureen Barahona MD Primary Care Provider [phone] Reason for Visit * Reason Comments Medication Refill Encounter Details Date Type Department Care Team (Late st Contact Info) Description 06/10/2019 Refill CLOSED-[facility] [address] [place] [address] Kimberli Wallace MD 105 [facility] [address] [place] [address] Other depression Social History Tobacco Use Types Packs/Day Years Used Date Smoking Tobacco: Never Smokeless Tobacco: Never Alcohol Use Standard Drinks/Week Comments Yes 10 (1 standard drink = 0.6 oz pu re alcohol) Sex and Gender Information Value Date Recorded Sex Assigned at Not on file Legal Sex Male 3:11 AM EDT Gender Identity Not on file Sexual Orientation Not on file documented as of this encounter Plan of Treatment Upcoming Encounters Date Type Department Care Team (Late st Contact Info) Description 08/06/2025 3:20 PM EST Office Visit [place] [address] [address] [place] [address] [place] [address] [address] Lakeshia Gregory NP 08/20/2025 1:30 PM EST Office Visit [facility] [address] [address] [place] [address] [address] documented as of this encounter Visit Diagnoses Diagnosis Other depression documented in this encounter Care Teams Mural Artist Relationship Specialty Start Date End Date Kimberli Wallace MD PCP - General Internal Medicine 10/08/17 11/30/24 Maureen Barahona MD [address] [place] [address] PCP - General Internal Medicine 12/01/24 documented as of this encounter
--- OUTSIDE RECORDS SUMMARY | 2025-08-05 04:47 | XMS_ITS | Encounter Summary ---
Author Organization [facility] Address [address] [place] [address] Care Team Providers Care Cad Engineer Name Role Phone Kimberli Wallace MD Primary Care Provider [phone] Maureen Barahona MD Primary Care Provider [phone] Reason for Visit * Reason Comments Medication Refill Encounter Details Date Type Department Care Team (Late st Contact Info) Description 12/03/2019 Refill CLOSED-[facility] [address] [place] [address] Kimberli Wallace MD 105 [facility] [address] [place] [address] Pure hypercholesterolemia Social History Tobacco Use Types Packs/Day Years [...] 3:20 PM EST Office Visit [place] [address] [address] [place] [address] [place] [address] [address] Lakeshia Gregory NP 08/20/2025 1:30 PM EST Office Visit [facility] [address] [address] [place] [address] [address] documented as of this encounter Visit Diagnoses Diagnosis Pure hypercholesterolemia documented in this encounter Care Teams Cad Engineer Relationship Specialty Start Date End Date Kimberli Wallace MD PCP - General Internal Medicine 10/08/17 11/30/24 Maureen Barahona MD [address] [place] [address] PCP - General Internal Medicine 12/01/24 documented as of this encounter
--- OUTSIDE RECORDS SUMMARY | 2025-08-05 04:47 | XMS_ITS | Encounter Summary ---
Author Organization [facility] Address [address] [place] [address] Care Team Providers Care Crystal Attacher Name Role Phone Kimberli Wallace MD Primary Care Provider Maureen Barahona MD Primary Care Provider [phone] Reason for Visit * Reason Comments Medication Refill Encounter Details Date Type Department Care Team (Late st Contact Info) Description 01/05/2020 Refill CLOSED-[facility] [address] [place] [address] Kimberli Wallace MD [address] [place] [address] [address] [place] [address] Essential hypertension; Pure hypercholesterolemia Social History Tobacco Use Types [...] Description 08/06/2025 3:20 PM EST Office Visit [place] [address] [address] [place] [address] [place] [address] [facility] [address] [place] [address] Lakeshia Gregory NP 08/20/2025 1:30 PM EST Office Visit [facility] [address] [address] [place] [address] [address] documented as of this encounter Visit Diagnoses Diagnosis Essential hypertension Unspecified essential hypertension Pure hypercholesterolemia documented in this encounter Care Teams Crystal Attacher Relationship Specialty Start Date End Date Kimberli Wallace MD PCP - General Internal Medicine 10/08/17 11/30/24 [place] [address] [address] PCP - General Internal Medicine 12/01/24 documented as of this encounter
--- OUTSIDE RECORDS SUMMARY | 2025-08-05 04:47 | XMS_ITS | Encounter Summary ---
Author Organization [facility] Address [address] [place] [address] Care Team Providers Care Clinical Dietitian Name Role Phone Kimberli Wallace MD Primary Care Provider Maureen Barahona MD Primary Care Provider [phone] Reason for Visit * Reason Comments Medication Refill Encounter Details Date Type Department Care Team (Late st Contact Info) Description 12/02/2019 Refill CLOSED-[place] [facility] [address] [place] [address] Kimberli aWllace MD 105 [facility] [address] [place] [address] Essential hypertension Social History Tobacco Use Types Packs/Day Years [...] Description 08/06/2025 3:20 PM EST Office Visit [place] [address] [address] [place] [address] [place] [address] [address] Lakeshia Gregory NP 08/20/2025 1:30 PM EST Office Visit [facility] [address] [address] [place] [address] [address] documented as of this encounter Visit Diagnoses Diagnosis Essential hypertension Unspecified essential hypertension documented in this encounter Care Teams Clinical Dietitian Relationship Specialty Start Date End Date Kimberli Wallace MD PCP - General Internal Medicine 10/08/17 11/30/24 Maureen Barahona MD [address] [place] [address] PCP - General Internal Medicine 12/01/24 documented as of this encounter
== END 2025-08-04 19:31 | disposition home or self-care (01) ==
PROVIDERS: Emergency Medicine; Emergency Provider Registered Nurse
DX: I25.10 Atherosclerotic heart disease of native coronary artery without angina pectoris (principal); K40.90 Unilateral inguinal hernia, without obstruction or gangrene, not specified as recurrent; I10 Essential (primary) hypertension
CPT/HCPCS: 36415; 74177; 80053; 83690; 85025; 99284; Q9967